=== PATIENT | male | born 1980 | race Caucasian/White ===

== ENCOUNTER 2016-11-26 14:06 | Emergency (ER) ==
[2016-11-26 14:13] VITALS: BP 144/78; TEMP 97.9; BMI 21.7
[2016-11-26] MEDS ORDERED: ZOFRAN 4 MG/2 ML IM STA (14:38)
[2016-11-26] MEDS ORDERED: TORADOL IM STA (14:38)
[2016-11-26] MEDS ORDERED: VALIUM SYRINGE IM STA (14:38)
[2016-11-26] MEDS ORDERED: MORPHINE 4 MG/ML SYRINGE IM STA (14:38)
--- NOTE | 2016-11-26 14:41 | ED.PDOC ---
General ED Provider: Dr. KAI IZAGUIRRE Chief Complaint: Back Pain Stated Complaint: back pain Time Seen by Physician: 14:10 Mode of Arrival: Walk-In Information Source: Patient Exam Limitations: No limitations Primary Care Provider: DAWNA RIZO Nursing and Triage Documentation Reviewed and Agree: Yes Musculoskeletal Complaint Exam - Back Pain Complaint/Exam Mechanism of Injury: Reports: No known trauma Onset/Duration: back painx 1 day Timing: Constant Episodes Lasting: Hours Initial Severity: Moderate Current Severity: Moderate Character: Reports: Aching, Throbbing, Spasmodic Aggravating: Reports: Movements, Lifting, Bending, Walking Alleviating: Reports: Rest, Position Associated Signs and Symptoms: Denies: Swelling, Redness, Bruising, Fever, Weakness, Numbness, Tingling, Abdominal pain, Flank pain, Bladder incontinence, Bowel incontinence, Weight loss, Pain with weight bearing Related History: Reports: Similar episode TAD Risk Factors: Reports: None AAA Risk Factors: Reports: None Cauda Equina Risk Factors: Reports: None Epidural Abcess Risk Factors: Reports: None Related Surgical History: Reports: None Focal Tenderness: No Paraspinal Muscle Tenderness: No Paraspinal Muscle Spasm: No Scoliosis: No Lordosis: No Kyphosis: No SLR Test: Right Negative, Left Negative Hip Motion Testing Pain: Right Negative, Left Negative Focal Weakness: Present: None Differential Diagnoses: Strain, Sprain Review of Systems - Review Of Systems Constitutional: Reports: No symptoms Eyes: Reports: No symptoms Ears, Nose, Mouth, Throat: Reports: No symptoms Respiratory: Reports: No symptoms Cardiac: Reports: No symptoms GI: Reports: No symptoms : Reports: No symptoms Musculoskeletal: Reports: Back pain Skin: Reports: No symptoms Neurological: Reports: No symptoms Endocrine: Reports: No symptoms Hematologic/Lymphatic: Reports: No symptoms All Other Systems: Reviewed and Negative Past Medical History - Past Medical History Previously Healthy: Yes Endocrine: Reports: None Cardiovascular: Reports: None Respiratory: Reports: None Hematological: Reports: None Gastrointestinal: Reports: None Genitourinary: Reports: None Neuro/Psych: Reports: None Musculoskeletal: Reports: None Cancer: Reports: None - Surgical History General Surgical History: Reports: None - Family History Family History: Reports: None - Social History Smoking Status: Current every day smoker Hx Substance Use: No Alcohol Screening: None Physical Exam - Physical Exam Appearance: Well-appearing, No pain distress, Well-nourished Eyes: VICTOR HUGO, EOMI, Conjunctiva clear ENT: Ears normal, Nose normal, Oropharynx normal Respiratory: Airway patent, Breath sounds clear, Breath sounds equal, Respirations nonlabored Cardiovascular: RRR, Pulses normal, No rub, No murmur GI/: Soft, Nontender, No masses, Bowel sounds normal, No Organomegaly Musculoskeletal: Normal strength, ROM intact, No edema, No calf tenderness Skin: Warm, Dry, Normal color Neurological: Sensation intact, Motor intact, Reflexes intact, Cranial nerves intact, Alert, Oriented Psychiatric: Affect appropriate, Mood appropriate Critical Care Note - Critical Care Note Total Time (mins): 0 Course - Course Orders, Labs, Meds: Orders Category Date Time Status Diazepam Syringe [Valium Syringe] MEDS 11/26/16 14:38 Stat 2 mg IM ONCE STA Ketorolac Tromethamine [Toradol] MEDS 11/26/16 14:38 Stat 30 mg IM ONCE STA Morphine Sulfate [Morphine 4 mg/ml Syringe] MEDS 11/26/16 14:38 Stat 4 mg IM ONCE STA Ondansetron HCl/Pf [Zofran 4 mg/2 ml] MEDS 11/26/16 14:38 Stat 4 mg IM ONCE STA Medications Generic Name Dose Route Start Last Admin Trade Name Freq PRN Reason Stop Dose Admin Diazepam 2 mg 11/26/16 14:38 Valium Syringe IM 11/26/16 14:39 ONCE STA Ketorolac Tromethamine 30 mg 11/26/16 14:38 Toradol IM 11/26/16 14:39 ONCE STA Morphine Sulfate 4 mg 11/26/16 14:38 Morphine 4 Mg/Ml Syringe IM 11/26/16 14:39 ONCE STA Ondansetron HCl 4 mg 11/26/16 14:38 Zofran 4 Mg/2 Ml IM 11/26/16 14:39 ONCE STA Vital Signs: Temp Pulse Resp BP Pulse Ox 11/26/16 14:08 97.9 F 82 16 144/78 H 98 Departure - Departure Time of Disposition: 14:40 Disposition: HOME SELF-CARE Discharge Problem: Backache Instructions: Acute Low Back Pain (ED), Low Back Strain (ED) Condition: Good Pt referred to PMD for follow-up: Yes Additional Instructions: Please call your Family Physician as soon as possible to schedule a follow-up appointment. Allergies/Adverse Reactions: Allergies No Known Allergies Allergy (Unverified 11/26/16 14:08) Home Medications: Ambulatory Orders 1 [No Reported Medications] 11/26/16
--- NOTE | 2016-11-26 15:43 | DI ---
EXAM: Lumbar spine five views HISTORY: Pain COMPARISON: None TECHNIQUE: Five views lumbar spine were performed, including oblique views FINDINGS: Sacroiliac joints intact. Sacral arcuate lines intact. Patient is tilted to the right v ersus mild rightward curvature lower thoracic/upper lumbar spine. Vertebral bodies normal height. Mild intervertebral disc space narrowing L4-L5. Mild to moderate intervertebral disc space narrowin g L5-S1. Multilevel marginal osteophyte formation. Mild multilevel facet arthrosis. No fracture. No subluxation. IMPRESSION: 1. No fracture or subluxation. 2. Chronic discogenic degenerative disease and facet arthrosis.
== END 2016-11-26 16:05 | disposition home or self-care (01) ==
LOC: ED 14:06
DX: M54.9 Dorsalgia, unspecified (principal); F17.210 Nicotine dependence, cigarettes, uncomplicated
CPT/HCPCS: 96372; 99283